=== PATIENT | male | born 1980 | race Hispanic/Latino ===

== ENCOUNTER 2021-08-30 10:04 | Emergency (ER) | payer MEDICAID ==
[2021-08-30] MEDS ORDERED: HYDROcodone/Acetaminophen 5/325 mg Tablet ONE (11:51)
== END 2021-08-30 13:12 | disposition home or self-care (01) ==
LOC: CSHERS 10:04
DX: S83.92XA Sprain of unspecified site of left knee, initial encounter (principal); I10 Essential (primary) hypertension; E11.9 Type 2 diabetes mellitus without complications; G47.30 Sleep apnea, unspecified; Z79.4 Long term (current) use of insulin; Z79.899 Other long term (current) drug therapy

== ENCOUNTER 2022-04-21 23:08 | Emergency (ER) | payer OTHER ==
[2022-04-21 23:52] LABS: #Basophils 0.1 10x3/uL (0.0-0.2); #Eosinphils 0.2 10x3/uL (0.0-0.5); #Monocytes 0.6 10x3/uL (0.0-1.1); #Neutrophils 6.2 10x3/uL (1.5-8.4); %Basophils 0.5 % (0.0-2.0); %Eosinophils 2.1 % (0.0-6.0); %Lymphocytes 23.3 % (18.0-47.0); %Monocytes 6.5 % (0.0-10.0); %Neutrophils 67.1 % (40.0-75.0); Hemoglobin 11.6 g/dL (13.5-17.5); Mean Corpuscular Hemoglobin 25.5 pg (27.0-33.0); Mean Corpuscular Volume 79.6 fl (81.2-95.1); Mean Platelet Volume 9.4 fl (7.4-10.4); Platelet Count 306 10x3/uL (150-450); RBC Distribution Width 16.1 % (11.5-14.5); Red Blood Cell (RBC) Count 4.55 10x6/uL (4.32-5.72); White Blood Cell (WBC) Count 9.2 10x3/uL (3.5-10.5)
[2022-04-21] MEDS ORDERED: Ketorolac Tromethamine 30 MG/ML VIAL ONE (23:59)
[2022-04-22 00:11] LABS: ALT (SGPT) 23 U/L (8-55); AST (SGOT) 17 U/L (5-34); Albumin 3.5 g/dL (3.5-5.0); Alkaline Phosphatase 114 U/L (40-110); Anion Gap 13 mmol/L (10-20); BUN (Urea Nitrogen) 14 mg/dL (8.9-20.6); Bilirubin, Total 0.7 mg/dL (0.2-1.2); Calc. Creatinine Clearance 0 mL/min (70-130); Calcium 9.3 mg/dL (7.8-10.44); Carbon Dioxide 25 mmol/L (22-29); Chloride 101 mmol/L (98-107); Estimated GFR 115; Globulin 4.7 g/dL (2.4-3.5); Glucose 280 mg/dL (70-105); Magnesium 1.9 mg/dL (1.6-2.6); Potassium 3.8 mmol/L (3.5-5.1); Protein, Total 8.2 g/dL (6.0-8.3); Sodium 135 mmol/L (136-145)
[2022-04-22 02:30] LABS: Troponin I Less than 0.010 ng/mL (< 0.028)
== END 2022-04-22 02:52 | disposition home or self-care (01) ==
LOC: CSHERS 23:08
DX: R07.2 Precordial pain (principal); E11.9 Type 2 diabetes mellitus without complications; I10 Essential (primary) hypertension; Z79.899 Other long term (current) drug therapy; Z79.84 Long term (current) use of oral hypoglycemic drugs
CPT/HCPCS: 71045; 80053; 83735; 84484; 85025; 93005; 96374; J1885

== ENCOUNTER 2023-01-15 16:53 | Emergency (ER) | payer OTHER ==
[2023-01-15] MEDS ORDERED: Ketorolac Tromethamine 30 MG/ML VIAL ONE (19:33)
[2023-01-15 19:51] LABS: #Basophils 0.1 10x3/uL (0.0-0.2); #Eosinphils 0.2 10x3/uL (0.0-0.5); #Monocytes 0.6 10x3/uL (0.0-1.1); #Neutrophils 5.9 10x3/uL (1.5-8.4); %Basophils 0.5 % (0.0-2.0); %Eosinophils 1.8 % (0.0-6.0); %Lymphocytes 26.7 % (18.0-47.0); %Monocytes 6.1 % (0.0-10.0); %Neutrophils 64.7 % (40.0-75.0); Hemoglobin 11.3 g/dL (13.5-17.5); Mean Corpuscular HGB CONC 31.7 g/dL (32.0-36.0); Mean Corpuscular Hemoglobin 27.4 pg (27.0-33.0); Mean Corpuscular Volume 86.4 fl (81.2-95.1); Mean Platelet Volume 10.5 fl (7.4-10.4); Platelet Count 276 10x3/uL (150-450); RBC Distribution Width 15.9 % (11.5-14.5); Red Blood Cell (RBC) Count 4.12 10x6/uL (4.32-5.72); White Blood Cell (WBC) Count 9.2 10x3/uL (3.5-10.5)
[2023-01-15 20:04] LABS: ALT (SGPT) 29 U/L (8-55); AST (SGOT) 29 U/L (5-34); Albumin 4.1 g/dL (3.5-5.0); Alkaline Phosphatase 91 U/L (40-110); Anion Gap 17 mmol/L (10-20); BUN (Urea Nitrogen) 14 mg/dL (8.9-20.6); Bilirubin, Total 1.4 mg/dL (0.2-1.2); CK (CPK) 151 U/L (30-200); Calc. Creatinine Clearance 0 mL/min (70-130); Calcium 9.6 mg/dL (7.8-10.44); Carbon Dioxide 23 mmol/L (22-29); Chloride 103 mmol/L (98-107); Estimated GFR 110; Globulin 4.6 g/dL (2.4-3.5); Glucose 80 mg/dL (70-105); Potassium 3.7 mmol/L (3.5-5.1); Protein, Total 8.7 g/dL (6.0-8.3); Sodium 139 mmol/L (136-145)
== END 2023-01-15 20:48 | disposition home or self-care (01) ==
LOC: CSHERS 16:53
DX: S76.912A Strain of unspecified muscles, fascia and tendons at thigh level, left thigh, initial encounter (principal); E11.9 Type 2 diabetes mellitus without complications; E78.5 Hyperlipidemia, unspecified; I10 Essential (primary) hypertension; X50.1XXA Overexertion from prolonged static or awkward postures, initial encounter; Z79.84 Long term (current) use of oral hypoglycemic drugs
CPT/HCPCS: 80053; 82550; 83605; 85025; 96361; 96374; J1885

== ENCOUNTER 2023-03-24 11:45 | Emergency (ER) | payer OTHER, MEDICAID ==
[2023-03-24] MEDS ORDERED: Cyclobenzaprine 10 MG TAB ONE (12:34)
[2023-03-24] MEDS ORDERED: Ibuprofen 200 MG TAB ONE (12:38)
== END 2023-03-24 12:43 | disposition home or self-care (01) ==
LOC: CSHERS 11:45
DX: M25.511 Pain in right shoulder (principal); I10 Essential (primary) hypertension; E11.9 Type 2 diabetes mellitus without complications

== ENCOUNTER 2023-11-14 17:30 | Emergency (ER) | payer OTHER | END 2023-11-14 18:57 | disposition home or self-care (01) | LOC: CSHERS 17:30 | DX: S63.633A Sprain of interphalangeal joint of left middle finger, initial encounter (principal); I10 Essential (primary) hypertension; E11.9 Type 2 diabetes mellitus without complications; E78.5 Hyperlipidemia, unspecified; W23.1XXA Caught, crushed, jammed, or pinched between stationary objects, initial encounter ==

== ENCOUNTER 2023-11-25 01:41 | Emergency (ER) | payer OTHER ==
[2023-11-25] MEDS ORDERED: Ondansetron PF 4 MG/2 ML Vial ONE (01:58)
[2023-11-25 02:12] LABS: #Basophils 0.1 10x3/uL (0.0-0.2); #Eosinphils 0.4 10x3/uL (0.0-0.5); #Monocytes 0.7 10x3/uL (0.0-1.1); #Neutrophils 5.9 10x3/uL (1.5-8.4); %Basophils 0.5 % (0.0-2.0); %Eosinophils 3.8 % (0.0-6.0); %Lymphocytes 28.5 % (18.0-47.0); %Monocytes 6.9 % (0.0-10.0); %Neutrophils 60.1 % (40.0-75.0); Hematocrit 40.5 % (38.8-50.0); Hemoglobin 14.1 g/dL (13.5-17.5); Mean Corpuscular HGB CONC 34.8 g/dL (32.0-36.0); Mean Platelet Volume 9.5 fl (7.4-10.4); Platelet Count 286 10x3/uL (150-450); Red Blood Cell (RBC) Count 4.55 10x6/uL (4.32-5.72); White Blood Cell (WBC) Count 9.8 10x3/uL (3.5-10.5)
[2023-11-25 02:25] LABS: ALT (SGPT) 13 U/L (8-55); AST (SGOT) 15 U/L (5-34); Albumin 4.2 g/dL (3.5-5.0); Alkaline Phosphatase 94 U/L (40-110); Anion Gap 15 mmol/L (10-20); BUN (Urea Nitrogen) 17 mg/dL (8.9-20.6); Bilirubin, Total 1.1 mg/dL (0.2-1.2); Calc. Creatinine Clearance 0 mL/min (70-130); Calcium 9.2 mg/dL (7.8-10.44); Carbon Dioxide 22 mmol/L (22-29); Chloride 105 mmol/L (98-107); Estimated GFR 94; Globulin 3.9 g/dL (2.4-3.5); Glucose 107 mg/dL (70-105); Lipase 26 U/L (8-78); Potassium 3.9 mmol/L (3.5-5.1); Protein, Total 8.1 g/dL (6.0-8.3); Sodium 138 mmol/L (136-145)
[2023-11-25] MEDS ORDERED: Morphine 4 MG/ML VIAL ONE ×2 (02:25→04:28)
[2023-11-25] MEDS ORDERED: diphenhydrAMINE 50 MG/ML VIAL ONE (02:59)
[2023-11-25] MEDS ORDERED: methylPREDNISolone Sod Succ 40 MG VIAL ONE (03:00)
[2023-11-25] MEDS ORDERED: Famotidine/PF 20 mg/2ml Vial ONE (03:00)
[2023-11-25] MEDS ORDERED: Ketorolac Tromethamine 30 MG (1 mL) VIAL ONE (04:28)
[2023-11-25 05:21] LABS: Bilirubin Neg (Negative); Blood, Urine Negative (Negative); Clarity Clear (Clear); Glucose, Urine (Dipstick) Normal (Negative); Ketone, Urine Negative (Negative); Leukocyte Negative (Negative); Nitrite Negative (Negative); Protein, Urine (Dipstick) Negative (Neg-Trace)
[2023-11-25 05:28] LABS: Amphetamine Not Detected (NotDetected); Barbiturates Screen Not Detected (NotDetected); Benzodiazepine Screen Not Detected (NotDetected); Cocaine Metabolite Screen Detected (NotDetected); Methadone Not Detected (NotDetected); Methamphetamine Not Detected (NotDetected); Opiate Screen Detected (NotDetected); Oxycodone Screen Not Detected (NotDetected); Phencyclidine (PCP) Not Detected (NotDetected); THC/Cannabinoid Screen Not Detected (NotDetected); Tricyclic Screen Not Detected (NotDetected)
[2023-11-25 05:41] LABS: CAUTI Indications for Culture Pelvic or flank pain; RBC/HPF None Seen HPF (0-3); Squamous Epithelial 0-3 HPF (0-3); WBC/HPF None Seen HPF (0-3)
[2023-11-25 05:44] LABS: Bacteria/HPF None Seen HPF (None Seen)
[2023-11-25 05:45] LABS: Urine Culture Reflex No No
[2023-11-25] MEDS ORDERED: Iopamidol 300 61% 100 ML VIAL FS ONE (12:38)
== END 2023-11-25 06:23 | disposition home or self-care (01) ==
LOC: CSHERS 01:41
DX: R10.10 Upper abdominal pain, unspecified (principal); R11.2 Nausea with vomiting, unspecified; I10 Essential (primary) hypertension; E11.9 Type 2 diabetes mellitus without complications
CPT/HCPCS: 74177; 80053; 80306; 81001; 83690; 85025; 93005; 96361; 96374; 96375; 96376; J1200; J1885; J2270; J2405; J2920; Q9967; S0028

== ENCOUNTER 2024-02-26 20:10 | Emergency (ER) | payer MEDICARE, MEDICAID ==
[2024-02-26] MEDS ORDERED: Dexamethasone 10 MG/ML VIAL ONE (20:45)
== END 2024-02-26 21:08 | disposition home or self-care (01) ==
LOC: CSHERS 20:10
DX: L25.9 Unspecified contact dermatitis, unspecified cause (principal); I10 Essential (primary) hypertension; E11.9 Type 2 diabetes mellitus without complications; E78.5 Hyperlipidemia, unspecified; Z79.899 Other long term (current) drug therapy
CPT/HCPCS: 96372; 99282; J1100

== ENCOUNTER 2024-03-28 19:19 | Inpatient (IN) | payer OTHER, MEDICARE, MEDICAID ==
[~2024-03-28 19:19] MED LIST: Iopamidol 300 61% 100 ML VIAL FS ONE
[2024-03-28] MEDS ORDERED: Ondansetron PF 4 MG/2 ML Vial ONE (19:27)
[2024-03-28] MEDS ORDERED: Morphine 4 MG/ML VIAL ONE (19:27)
[2024-03-28 19:44] LABS: #Basophils 0.03 10x3/uL (0.0-0.2); #Eosinphils 0.15 10x3/uL (0.0-0.5); #Monocytes 0.57 10x3/uL (0.0-1.1); #Neutrophils 5.38 10x3/uL (1.5-8.4); %Basophils 0.4 % (0.0-2.0); %Eosinophils 1.9 % (0.0-6.0); %Lymphocytes 22.3 % (18.0-47.0); %Monocytes 7.2 % (0.0-10.0); %Neutrophils 67.9 % (40.0-75.0); Hemoglobin 13.7 g/dL (13.5-17.5); Mean Corpuscular HGB CONC 34.3 g/dL (32.0-36.0); Mean Corpuscular Hemoglobin 28.8 pg (27.0-33.0); Mean Corpuscular Volume 84.2 fL (81.2-95.1); Mean Platelet Volume 9.3 fL (7.4-10.4); Platelet Count 317 10x3/uL (150-450); RBC Distribution Width 13.1 % (11.5-14.5); Red Blood Cell (RBC) Count 4.75 10x6/uL (4.32-5.72); White Blood Cell (WBC) Count 7.9 10x3/uL (3.5-10.5)
[2024-03-28 19:53] LABS: ALT (SGPT) 117 U/L (8-55); AST (SGOT) 198 U/L (5-34); Albumin 3.9 g/dL (3.5-5.0); Alkaline Phosphatase 251 U/L (40-110); Anion Gap 16 mmol/L (10-20); BUN (Urea Nitrogen) 10 mg/dL (8.9-20.6); Bilirubin, Total 2.5 mg/dL (0.2-1.2); Calc. Creatinine Clearance 0 mL/min (70-130); Calcium 9.5 mg/dL (7.8-10.44); Carbon Dioxide 23 mmol/L (22-29); Chloride 103 mmol/L (98-107); Estimated GFR 113; Globulin 4.5 g/dL (2.4-3.5); Glucose 123 mg/dL (70-105); Lipase 14 U/L (8-78); Magnesium 2.2 mg/dL (1.6-2.6); Potassium 4.2 mmol/L (3.5-5.1); Protein, Total 8.4 g/dL (6.0-8.3); Sodium 138 mmol/L (136-145)
[2024-03-28 19:56] LABS: Troponin I Less than 0.010 ng/mL (< 0.028)
[2024-03-28] MEDS ORDERED: Piperacillin/Tazobactam 4.5 GM VIAL ONE (21:11)
[2024-03-28] MEDS ORDERED: Dextrose 5% in Water 1,000 ML IV PRN (21:21)
[2024-03-28] MEDS ORDERED: Dextrose 50% Abboject 50 ML SYRINGE SLOW IVP PRN (21:21)
[2024-03-28] MEDS ORDERED: Glucagon 1 MG/ML KIT IM PRN (21:21)
[2024-03-28] MEDS ORDERED: Ondansetron ODT 4 MG TAB PO PRN (21:27)
[2024-03-28] MEDS ORDERED: Piperacillin/Tazobactam 4.5 GM in Sodium Chloride 0.9% 100 ML IVPB SCH (22:00)
[2024-03-28] MEDS ORDERED: Insulin Lispro 100 UNIT/ML 10 ML VIAL SC PRN (22:17)
[2024-03-28 22:21] VITALS: BMI 43.8
[2024-03-28] MEDS: Lactated Ringer's 1,000 ML IV SCH (22:30)
[2024-03-28] MEDS: hydrALAZINE 20 MG/ML VIAL SLOW IVP PRN (22:32)
[2024-03-28] MEDS: Morphine 4 MG/ML VIAL SLOW IVP PRN (22:33)
[2024-03-28] MEDS: LevoFLOXacin 750 mg/D5W 750 MG in Premix 1 BAG IVPB SCH (23:55)
[2024-03-28] MEDS: Ketorolac Tromethamine 30 MG (1 mL) VIAL IVP SCH (23:56)
[2024-03-28] MEDS: Enoxaparin 40 MG (0.4 mL) SYRINGE SC SCH (23:57)
[2024-03-29] MEDS: Acetaminophen 500 MG TAB PO SCH (03:27)
[2024-03-29 04:23] LABS: #Basophils 0.04 10x3/uL (0.0-0.2); #Eosinphils 0.19 10x3/uL (0.0-0.5); #Monocytes 0.61 10x3/uL (0.0-1.1); #Neutrophils 3.88 10x3/uL (1.5-8.4); %Basophils 0.7 % (0.0-2.0); %Eosinophils 3.2 % (0.0-6.0); %Lymphocytes 21.3 % (18.0-47.0); %Monocytes 10.1 % (0.0-10.0); %Neutrophils 64.4 % (40.0-75.0); Hematocrit 37.1 % (38.8-50.0); Hemoglobin 12.8 g/dL (13.5-17.5); Mean Corpuscular HGB CONC 34.5 g/dL (32.0-36.0); Mean Corpuscular Hemoglobin 29.4 pg (27.0-33.0); Mean Corpuscular Volume 85.1 fL (81.2-95.1); Mean Platelet Volume 9.3 fL (7.4-10.4); Platelet Count 270 10x3/uL (150-450); RBC Distribution Width 13.1 % (11.5-14.5); Red Blood Cell (RBC) Count 4.36 10x6/uL (4.32-5.72)
[2024-03-29 04:50] LABS: ALT (SGPT) 153 U/L (8-55); AST (SGOT) 197 U/L (5-34); Albumin 3.1 g/dL (3.5-5.0); Alkaline Phosphatase 239 U/L (40-110); Anion Gap 12 mmol/L (10-20); BUN (Urea Nitrogen) 9 mg/dL (8.9-20.6); Bilirubin, Total 2.7 mg/dL (0.2-1.2); Calc. Creatinine Clearance 222 mL/min (70-130); Calcium 8.9 mg/dL (7.8-10.44); Carbon Dioxide 25 mmol/L (22-29); Chloride 106 mmol/L (98-107); Estimated GFR 114; Globulin 4.1 g/dL (2.4-3.5); Glucose 90 mg/dL (70-105); Protein, Total 7.2 g/dL (6.0-8.3); Sodium 139 mmol/L (136-145)
[2024-03-29] MEDS: Pantoprazole 40 MG VIAL IVP SCH (08:03)
[2024-03-29] MEDS: Ondansetron PF 4 MG/2 ML Vial IVP PRN (08:03)
[2024-03-29] MEDS: Losartan 50 MG TAB PO SCH (09:34)
[2024-03-29] MEDS ORDERED: CEFAZOLIN 2 GM VIAL ONE (11:24)
[2024-03-29] MEDS ORDERED: Bupivacaine PF 0.5% 30 ML VIAL ONE ×2 (11:24→12:46)
[2024-03-29] MEDS ORDERED: Iopamidol 30 ML ONE (11:25)
[2024-03-29] MEDS ORDERED: fentaNYL 50 mcg/mL 1 mL Vial ONE ×3 (11:25→13:06)
[2024-03-29] MEDS ORDERED: Rocuronium Bromide 10 MG/ML (10ML VIAL) ONE (11:25)
[2024-03-29] MEDS ORDERED: PROPOFOL 20 ML ONE (11:25)
[2024-03-29] MEDS ORDERED: Lidocaine 4% PF 5 ML AMP ONE (11:27)
[2024-03-29] MEDS ORDERED: SUGAMMADEX SODIUM 200 MG/2 ML VIAL ONE (12:14)
[2024-03-29] MEDS ORDERED: EPINEPHrine 1 MG/ML AMP ONE (12:46)
[2024-03-29] MEDS ORDERED: Iopamidol 15 ML ONE (13:24)
[2024-03-29 13:50] LABS: Hemoglobin A1c 5.1 % (4.0-6.0)
[2024-03-29] MEDS: Enoxaparin 40 MG (0.4 mL) SYRINGE SC SCH (21:38)
[2024-03-30 04:17] LABS: ALT (SGPT) 181 U/L (8-55); AST (SGOT) 160 U/L (5-34); Alkaline Phosphatase 283 U/L (40-110); Anion Gap 11 mmol/L (10-20); BUN (Urea Nitrogen) 10 mg/dL (8.9-20.6); Bilirubin, Total 3.7 mg/dL (0.2-1.2); Calc. Creatinine Clearance 219 mL/min (70-130); Calcium 9.1 mg/dL (7.8-10.44); Carbon Dioxide 25 mmol/L (22-29); Chloride 103 mmol/L (98-107); Estimated GFR 114; Globulin 4.1 g/dL (2.4-3.5); Glucose 128 mg/dL (70-105); Potassium 4.2 mmol/L (3.5-5.1); Protein, Total 7.1 g/dL (6.0-8.3); Sodium 135 mmol/L (136-145)
[2024-03-30 04:26] LABS: #Basophils 0.01 10x3/uL (0.0-0.2); #Neutrophils 7.69 10x3/uL (1.5-8.4); %Basophils 0.1 % (0.0-2.0); %Lymphocytes 11.5 % (18.0-47.0); %Monocytes 7.4 % (0.0-10.0); %Neutrophils 80.8 % (40.0-75.0); Hematocrit 36.9 % (38.8-50.0); Hemoglobin 12.2 g/dL (13.5-17.5); Mean Corpuscular HGB CONC 33.1 g/dL (32.0-36.0); Mean Corpuscular Hemoglobin 28.4 pg (27.0-33.0); Mean Platelet Volume 9.5 fL (7.4-10.4); Platelet Count 272 10x3/uL (150-450); RBC Distribution Width 13.2 % (11.5-14.5); Red Blood Cell (RBC) Count 4.29 10x6/uL (4.32-5.72); White Blood Cell (WBC) Count 9.5 10x3/uL (3.5-10.5)
[2024-03-30] MEDS ORDERED: Indomethacin 50 MG SUPP ONE (09:19)
[2024-03-30] MEDS ORDERED: Iopamidol 15 ML ONE (09:19)
[2024-03-31] MEDS ORDERED: Lidocaine 2% MPF 10 ML AMP (For Epidural Use) ONE (11:00)
[2024-03-31] MEDS ORDERED: fentaNYL 50 mcg/mL 1 mL Vial ONE (12:08)
[2024-03-31] MEDS ORDERED: Dexamethasone 4 mg/ml Vial ONE (12:08)
[2024-03-31] MEDS ORDERED: Lidocaine 1% PF 5 ML VIAL ONE (12:08)
[2024-03-31] MEDS ORDERED: Glucagon 1 MG/ML KIT ONE (12:08)
[2024-03-31] MEDS ORDERED: Ondansetron PF 4 MG/2 ML Vial ONE (12:08)
[2024-03-31] MEDS ORDERED: PROPOFOL 20 ML ONE (12:08)
[2024-03-31] MEDS ORDERED: Rocuronium Bromide 10 MG/ML (10ML VIAL) ONE (12:08)
[2024-03-31] MEDS ORDERED: Indomethacin 50 MG SUPP ONE (12:09)
[2024-03-31] MEDS ORDERED: Iopamidol 30 ML ONE (12:09)
[2024-03-31] MEDS ORDERED: Midazolam HCl 2 mg/2 ml Vial ONE (12:26)
[2024-03-31] MEDS ORDERED: SUGAMMADEX SODIUM 200 MG/2 ML VIAL ONE (13:19)
[2024-03-31] MEDS ORDERED: Ibuprofen 600 MG TAB PO PRN (15:36)
[2024-04-01 04:25] LABS: #Basophils 0.02 10x3/uL (0.0-0.2); #Eosinphils 0.01 10x3/uL (0.0-0.5); #Monocytes 0.86 10x3/uL (0.0-1.1); %Basophils 0.2 % (0.0-2.0); %Eosinophils 0.1 % (0.0-6.0); %Lymphocytes 9.1 % (18.0-47.0); %Monocytes 8.6 % (0.0-10.0); %Neutrophils 81.5 % (40.0-75.0); Hematocrit 34.5 % (38.8-50.0); Hemoglobin 11.6 g/dL (13.5-17.5); Mean Corpuscular HGB CONC 33.6 g/dL (32.0-36.0); Mean Corpuscular Hemoglobin 29.1 pg (27.0-33.0); Mean Corpuscular Volume 86.7 fL (81.2-95.1); Mean Platelet Volume 9.9 fL (7.4-10.4); Platelet Count 188 10x3/uL (150-450); RBC Distribution Width 13.6 % (11.5-14.5); Red Blood Cell (RBC) Count 3.98 10x6/uL (4.32-5.72); White Blood Cell (WBC) Count 10.1 10x3/uL (3.5-10.5)
[2024-04-01 04:40] LABS: ALT (SGPT) 79 U/L (8-55); AST (SGOT) 30 U/L (5-34); Albumin 2.5 g/dL (3.5-5.0); Alkaline Phosphatase 277 U/L (40-110); Anion Gap 13 mmol/L (10-20); BUN (Urea Nitrogen) 20 mg/dL (8.9-20.6); Bilirubin, Total 3.2 mg/dL (0.2-1.2); Calc. Creatinine Clearance 137 mL/min (70-130); Calcium 8.9 mg/dL (7.8-10.44); Carbon Dioxide 22 mmol/L (22-29); Chloride 106 mmol/L (98-107); Estimated GFR 73; Globulin 4.3 g/dL (2.4-3.5); Glucose 142 mg/dL (70-105); Lipase 24 U/L (8-78); Potassium 3.8 mmol/L (3.5-5.1); Protein, Total 6.8 g/dL (6.0-8.3); Sodium 137 mmol/L (136-145)
[2024-04-01] MEDS: LevoFLOXacin 500 MG TAB PO SCH (05:13)
[2024-04-01] MEDS: Pantoprazole DR 40 MG TAB PO SCH (09:05)
[2024-04-01 12:53] VITALS: BP 133/79; TEMP 99.3
[2024-04-01] MEDS: traMADol HCl 50 MG TAB PO PRN (15:42)
[2024-04-03 15:16] LABS: Actual Bicarbonate (HCO3v) 25.8 mEq/L (22-28); Analyzer IN Cardio CS ER; Base Excess 1.1 mEq/L (-2 - +2); Calcium, Ionized (venous) 1.16 mmol/L (1.16-1.32); Chloride (VBG) 100 mmol/L (98-106); Hematocrit-VBG 45 % (42.0-52.0); Hemoglobin (Hb) 15.2 g/dL (13.2-17.3); Potassium (VBG) 4.03 mmol/L (3.70-5.30); Puncture Site Other Site; RapidComm Collect By LAB; Sodium 140 mmol/L (133-146); pH (venous) 7.412 (7.32-7.43)
== END 2024-04-01 16:20 | disposition home or self-care (01) | DRG 418 ==
LOC: CSHERS 19:19 → CSHTELE 21:13
PROVIDERS: ADMIT Specialist; ATTEND Specialist
PROC: 0FT44ZZ Resection of Gallbladder, Percutaneous Endoscopic Approach (ICD-10-PCS; principal; 2024-03-29)
PROC: BF131ZZ Fluoroscopy of Gallbladder and Bile Ducts using Low Osmolar Contrast (ICD-10-PCS; 2024-03-29)
PROC: 3E033XZ Introduction of Vasopressor into Peripheral Vein, Percutaneous Approach (ICD-10-PCS; 2024-03-29)
PROC: 5A09457 Assistance with Respiratory Ventilation, 24-96 Consecutive Hours, Continuous Positive Airway Pressure (ICD-10-PCS; 2024-03-29)
PROC: 0FC98ZZ Extirpation of Matter from Common Bile Duct, Via Natural or Artificial Opening Endoscopic (ICD-10-PCS; 2024-03-31)
DX: K80.42 Calculus of bile duct with acute cholecystitis without obstruction (principal); Z68.41 Body mass index [BMI] 40.0-44.9, adult; G47.33 Obstructive sleep apnea (adult) (pediatric); E11.9 Type 2 diabetes mellitus without complications; E66.01 Morbid (severe) obesity due to excess calories; E78.5 Hyperlipidemia, unspecified; Z79.899 Other long term (current) drug therapy; Z79.4 Long term (current) use of insulin; Z88.1 Allergy status to other antibiotic agents; Z88.0 Allergy status to penicillin; I10 Essential (primary) hypertension
CPT/HCPCS: 36415; 36416; 47532; 74177; 74330; 76705; 80053; 82010; 82805; 83036; 83605; 83690; 83735; 83880; 84484; 85025; 88304; 93005; 94660; 96361; 96365; 96375; A4649; C1713; C1725; C9113; J0171; J0360; J0665; J1100; J1611; J1650; J1885; J1956; J2250; J2270; J2405; J2543; J2704; J3010; J7120; Q9967

== ENCOUNTER 2024-08-14 10:19 | Emergency (ER) | payer MEDICARE, MEDICAID ==
[2024-08-14] MEDS ORDERED: Ibuprofen 200 MG TAB ONE (13:35)
== END 2024-08-14 13:52 | disposition home or self-care (01) ==
LOC: CSHERS 10:19
DX: M66.822 Spontaneous rupture of other tendons, left upper arm (principal); I10 Essential (primary) hypertension; E11.9 Type 2 diabetes mellitus without complications
CPT/HCPCS: 99283